=== PATIENT | female | born 1970 | race Caucasian/White ===

== ENCOUNTER → 2020-04-11 16:17 | Outpatient (CLI) | payer OTHER, SELFPAY ==
--- NOTE | ~2020-04-11 | XR_ITS ---
EXAMINATION: XR lumbar spine min 4V DATE: 04/11/2020 16:52 INDICATION: TECHNIQUE: Anteroposterior, lateral, bilateral oblique and cone-down lateral lumbosacral views of th e lumbar spine were obtained. COMPARISON: None. FINDINGS: 12 degree thoracolumbar levoscoliosis measured between T10 and L2. Vertebral body heights are normal. Mild right-sided disc height loss at T11-T12 and T12-L1 and mild left-sided disc height loss at L2-L 3, L3-L4 and L4-L5. No pars interarticularis defects. Mild osteoarthritis bilaterally at L4-L5. Sacru m and bilateral sacroiliac joints are normal. IMPRESSION: 1. Mild thoracolumbar levoscoliosis with mild lumbar spondylosis. Reviewed, dictated and finalized at location A.
== END ==
PROVIDERS: PCP Family Medicine; Visit Provider Family Medicine
DX: M54.17 Radiculopathy, lumbosacral region (principal); R25.2 Cramp and spasm; R53.83 Other fatigue; M47.896 Other spondylosis, lumbar region
CPT/HCPCS: 72110

== ENCOUNTER 2022-04-09 07:27 | Outpatient (CLI) | payer OTHER, SELFPAY ==
--- NOTE | ~2022-04-09 | MM_ITS ---
EXAMINATION: MM screening ran BI w ammon HISTORY: Screening mammogram TECHNIQUE: Craniocaudal and mediolateral oblique 3-D tomosynthesis images were obtained and synthetic 2-D images were generated. CAD analysis was submitted and interpreted. COMPARISON: 12/31/2011 bilateral screening mammogram BREAST PARENCHYMAL COMPOSITION: There are scattered areas of fibroglandular density. FINDINGS: There is no evidence of suspicious mass, calcification, or architectural distortion to sugg est malignancy in either breast. There has been no suspicious interval change. IMPRESSION: 1. No mammographic evidence of malignancy. 2. Recommend routine screening mammography in one year. BI-RADS Category 1: Negative Reviewed, dictated and finalized at location A.
== END 2022-04-09 07:28 | disposition home or self-care (01) ==
LOC: ANHIMG 07:28
PROVIDERS: PCP Family Medicine; Visit Provider Family Medicine
DX: Z12.31 Encounter for screening mammogram for malignant neoplasm of breast (principal)
CPT/HCPCS: 77063; 77067

== ENCOUNTER 2022-06-21 08:55 | Outpatient (CLI) | payer OTHER, SELFPAY ==
--- NOTE | 2022-06-28 15:16 | WPDHOMESLEEP ---
Sleep Study - Home Unattended Date of Study: 06/21/22 Ordering Provider: Titus Johnson MD Interpreting Provider: Valeri Cifuentes, DO Home Sleep Study Type: Watch PAT Height: 1.57 m Weight: 63.503 kg Body Mass Index: 25.6 Neck Circumference (inches): 13 Menan: 15 Reason for Sleep Study Unrefreshing sleep and daytime hypersomnia Sleep History The patient is a 51-year-old female with depression, constipation, bilateral carpal tunnel syndrome and history of tobacco use that had a sleep study ordered for evaluation of sleep apnea. The patient denies awakening from sleep short of breath. She denies awakening at night with heartburn, belching or cough. She constantly snores and is frequently loud enough that others complain. She constantly has trouble sleeping when she has a cold. She denies waking up gasping for air throughout the night. She occasionally has breathing problems at night observed by herself or others. She occasionally sweats excessively at night. She occasionally has heart palpitations or irregular heartbeats during the night. She occasionally falls asleep during the day and occasionally falls asleep while driving. she rarely experiences loss of muscle tone when extremely emotional. She frequently has trouble at school or work due to sleepiness. He denies sleep paralysis and hypnagogic/ hypnopompic hallucinations. She denies feeling afraid of going to sleep. She rarely has nightmares and occasionally remembers her dreams. She frequently has thoughts racing through her mind. She occasionally feels sad or depressed. She constantly has anxiety. She constantly has muscular tension. She occasionally notices parts of her body jerk. She denies kicking during the night. He denies having crawling and aching feelings in her legs as well as leg pain during the night. She denies grinding her teeth during sleep but occasionally awakens with morning jaw pain. She is occasionally bothered by pain during the day but never awakened by pain during the night. She constantly wakes up feeling stiff in the morning. She frequently wakes up with sore or achy muscles. She constantly wakes up with pain in the neck, spine and other joints. She goes to bed between 8-9 p.m. on weekdays and between 9-10 p.m. on the weekends. It takes her a few minutes to fall asleep. She wakes up 2-3 times throughout the night to urinate. It can take less than an hour to fall back asleep. She wakes up between 330-4 a.m. on the weekdays and between 5-6 a.m. on the weekends. She typically gets 7-8 hours of sleep per night. He will stay in bed for 30-60 minutes after waking up in the morning. She currently lives with her , children and granddaughter. She does not consume any caffeinated beverages within 2 hours of bedtime. She does not engage in physical exercise before bedtime. She will read watch television before falling asleep. She denies taking naps in the afternoon or the evening. She drinks 2 cups of coffee in the morning. She is a former smoker. She drinks 5 alcoholic beverages per week. She denies recreational drug use. [facility] Past Medical History Medical History Bilateral carpal tunnel syndrome Constipation by delayed colonic transit Family History Family History Mother Family history of glaucoma Carcinoma of colon Father Patient's father is Sibling Family history of cardiovascular disease Other Family history of hypercholesterolemia Social History Social History Social History: Caffeine- daily coffee Smoking status: Former smoker Second hand tobacco smoke exposure: No Smoking end date: 07/11/16 Alcohol intake: current Drinks per week: 5 Alcohol use details: beer Substance use type: does not use M
[2022-06-28 15:27] VITALS: BMI 25.6
--- NOTE | 2023-06-24 10:56 | SLEEP ---
pt stated deductable high
== END 2022-06-25 09:24 | disposition home or self-care (01) ==
LOC: ANHCSM 08:57
PROVIDERS: PCP Family Medicine; Visit Provider Family Medicine
DX: G47.33 Obstructive sleep apnea (adult) (pediatric) (principal)
CPT/HCPCS: 95800

== ENCOUNTER 2022-07-01 11:46 | Outpatient (CLI) | payer OTHER, SELFPAY ==
--- NOTE | ~2022-07-01 | XR_ITS ---
EXAMINATION: XR chest 2V 07/01/2022 12:04 INDICATION: Hypoxemia PROCEDURE: 2 view chest COMPARISON: No prior studies for comparison. FINDINGS: The lungs are clear. Prominent left nipple shadow. The cardiomediastinal silhouette is with in normal limits. There are no pleural effusions. There is no pneumothorax suspected. IMPRESSION: 1: NO ACUTE CARDIOPULMONARY DISEASE. Reviewed, dictated and finalized at location A. [employer]
== END 2022-07-01 11:47 | disposition home or self-care (01) ==
LOC: ANHIMG 11:52
PROVIDERS: PCP Family Medicine; Visit Provider Family Medicine
DX: G47.33 Obstructive sleep apnea (adult) (pediatric) (principal); R09.02 Hypoxemia
CPT/HCPCS: 71046